=== PATIENT | male | born 1955 | race Caucasian/White ===

== ENCOUNTER 2021-05-10 09:40 | Emergency (ER) | payer MEDICARE ==
[~2021-05-10] VITALS: Ht 185.4 cm; Wt 97.5 kg
[~2021-05-10 09:40] MED LIST: NORVASC 5 MG TAB5 MG PO; PERCOCET 7.5-31 EACH PO; TOPROL XL50 MG PO
[2021-05-10 11:37] LABS: HEMOGLOBIN 14.5 gm/dl (14.0-17.5); RED BLOOD COUNT 4.65 M/UL (4.20-5.50); WHITE BLOOD COUNT 3.6 K/UL (4.5-11.0)
[2021-05-10 12:08] LABS: BUN/CREATININE RATIO 17 (0-10)
== END 2021-05-10 16:00 | disposition home or self-care (01) ==
LOC: ER1 09:40
PROVIDERS: Nurse Practitioner
DX: U07.1 COVID-19 (principal); J12.82 Pneumonia due to coronavirus disease 2019; E78.5 Hyperlipidemia, unspecified; I10 Essential (primary) hypertension; Z79.899 Other long term (current) drug therapy
CPT/HCPCS: 71045; 80053; 81001; 82550; 82553; 83690; 83735; 83874; 84484; 85025; 96374; 99285; J2405